=== PATIENT | male | born 1960 | race African-American/Black ===

== ENCOUNTER 2019-09-29 22:07 | Emergency (ER) | payer OTHER ==
[~2019-09-29] VITALS: Ht 182.9 cm; Wt 107.6 kg
[2019-09-29 23:51] LABS: ABSOLUTE NEUTROPHILS 2.5 thou/uL (1.4-8.2); BASOPHILS 0.7 % (0.0-2.0); EOSINOPHILS 2.5 % (0.0-3.0); HEMATOCRIT 40.4 % (42.0-52.0); HEMOGLOBIN 13.6 gm/dL (14.0-18.0); LYMPHOCYTES 50.1 % (24.0-44.0); MCH 32.3 pg (26.0-34.0); MCHC 33.6 g/dL (28.0-37.0); MCV 96.1 fL (80.0-100.0); MONOCYTES 5.5 % (1.0-8.0); PLATELET COUNT 336 thou/uL (150-400); POLYS 41.2 % (36.0-66.0); RBC 4.21 mil/uL (4.50-6.00); RDW 13.6 % (10.5-14.5)
[2019-09-30 00:02] LABS: ANION GAP 14 mmol/L (7-16); BUN 18 mg/dL (7-18); CALCIUM 8.2 mg/dL (8.5-10.1); CHLORIDE 107 mmol/L (98-107); CO2 24 mmol/L (21-32); GLUCOSE 102 mg/dL (74-106); POTASSIUM 3.4 mmol/L (3.5-5.1); SODIUM 145 mmol/L (136-145)
[2019-09-30] MEDS ORDERED: NORVASC 2.5 MG2.5 M1 PO (00:05)
[2019-09-30] MEDS ORDERED: RAYOS5 MG PO (00:07)
[2019-09-30] MEDS ORDERED: LIPITOR40 MG PO (00:08)
[2019-09-30] MEDS ORDERED: POTASSIUM20 PO (00:08)
[2019-09-30] MEDS ORDERED: LOPRESSOR100 M1 PO (00:09)
[2019-09-30 00:10] LABS: ALBUMIN 3.8 g/dL (3.4-5.0); SGOT 22 U/L (15-37); SGPT 28 U/L (30-65); TOTAL BILIRUBIN < 0.1 mg/dL (<0.1-1.0); TOTAL PROTEIN 7.7 g/dL (6.4-8.2); TROPONIN-I <0.06 ng/mL (<0.06)
[2019-09-30] MEDS ORDERED: HYDROCHLOROTHIA25 M2 PO (01:20)
[2019-09-30] MEDS ORDERED: PREDNISONE 20 M20 MG PO (02:20)
[2019-09-30] MEDS ORDERED: DELSYM30 MG/5 M1 PO (02:20)
[2019-09-30] MEDS ORDERED: TESSALON PERLE100 MG PO (02:31)
[2019-09-30 02:50] VITALS: BP 159/94
== END 2019-09-30 02:40 | disposition home or self-care (01) ==
LOC: ER 22:07
PROVIDERS: Physician Assistant
DX: G89.29 Other chronic pain (principal); M54.5 Low back pain; R06.02 Shortness of breath; F10.129 Alcohol abuse with intoxication, unspecified; Y90.7 Blood alcohol level of 200-239 mg/100 ml; R06.2 Wheezing; J44.9 Chronic obstructive pulmonary disease, unspecified; G47.33 Obstructive sleep apnea (adult) (pediatric)